=== PATIENT | female | born 1930 | race Caucasian/White ===

== ENCOUNTER 2016-08-10 11:35 | Emergency (ER) | payer OTHER ==
[~2016-08-10] VITALS: Ht 165.1 cm; Wt 66.9 kg
[~2016-08-10 11:35] MED LIST: ALPR-138 PO; ATOR40TA PO; CEPH500C3 PO; COUM1TAB PO; DIGO0.12 PO; FURO1TAB93 PO; KCL20 PO; LEVE500 PO; LISI-360 PO; METO50TA PO; PYRI200T4 PO
[2016-08-10 11:44] VITALS: BP 142/68; PULSE 53; RESP 16; TEMP 97.4; O2SAT 97
--- NOTE | 2016-08-10 12:03 | PD ---
HPI Chief Complaint: Injury Time Seen by Provider: 11:58 Travel History International Travel<30 days: No Contact w/Intl Traveler<30days: No Traveled to known affect area: No History of Present Illness HPI Patient is an 85-year-old female presenting to emergency for evaluation of right knee pain. Patient was sitting on the toilet cutting her toenails on Tuesday, leaning forward when she fell off of the toilet landing on her right knee. She denies any head injury, loss of consciousness, neck pain, back pain. She denies any dizziness, shortness of breath, chest pain prior to the fall. Patient presents with edema and ecchymosis to the right knee, she has been ambulating but states she's hobbling. She has been taking acetaminophen twice daily for the pain. Patient's past medical history includes CVA, hypertension, seizures, she is on Coumadin currently. PFSH Past Medical History Hx Anticoagulant Therapy: Yes (coumadin) Arthritis: No Asthma: No Atrial Fibrillation: Yes Autoimmune Disease: No Blood Disorders: No Cancer: No Cardiac Catheterization: Yes High Cholesterol: Yes Chemotherapy: No Chest Pain: Yes Congestive Heart Failure: No COPD: No Cerebrovascular Accident: Yes Coronary Artery Disease: Yes Diminished Hearing: No Endocrine: No Gastrointestinal Disorders: No GERD: Yes Genitourinary: No Headaches: Yes Hepatitis: No Hiatal Hernia: No Hypertension: Yes Immune Disorder: No Implanted Vascular Access Dvce: No Kidney Stones: No Musculoskeletal: No Psychiatric: No Reproductive: No Respiratory: No Immunizations Current: No Migraines: No Myocardial Infarction: Yes Radiation Therapy: No Renal Failure: No Seizures: Yes Sleep Apnea: No Thyroid Disease: No ?: Not Menopausal: Yes : 2 Para: 1 : 1 Tubal Ligation: No Past Surgical History Abdominal Surgery: Yes AICD: No Cholecystectomy: Yes Genitourinary Surgery: No Hysterectomy: No Insulin Pump: No Joint Replacement: No Neurologic Surgery: Yes (CEREBRAL HEMORRHAGE 20 YEARS AGO) Pacemaker: No Other Surgery: Yes (UMBILICAL HERNIA REPAIR) Social History Alcohol Use: No Tobacco Use: No Substance Use: Yes Allergies-Medications (Allergen,Severity, Reaction): Coded Allergies: Aspirin (Verified Allergy, Severe, BLEEDING, 08/10/16) Dilantin (Verified Allergy, Severe, Hallucinations, 08/10/16) Sulfa (Verified Allergy, Severe, ITCHING, 08/10/16) Reported Meds & Prescriptions Reported Meds & Active Scripts Active Reported Potassium Chloride Microencaps 20 Meq Tab 20 Meq PO DAILY Coumadin (Warfarin) 1 Mg Tab 0.5 Mg PO DAILY Metoprolol Tartrate 50 Mg Tab 50 Mg PO BID Lisinopril 10 Mg Tab 10 Mg PO DAILY Keppra (Levetiracetam) 750 Mg Tab 750 Mg PO BID Lasix (Furosemide) 40 Mg Tab 40 Mg PO DAILY Digoxin 0.25 Mg Tab 0.25 Mg PO DAILY Atorvastatin (Atorvastatin Calcium) 40 Mg Tab 40 Mg PO HS Xanax (Alprazolam) 0.25 Mg Tab 0.25 Mg PO HS PRN Review of Systems Except as stated in HPI: all other systems reviewed are Neg HENT: No: Headaches, Neck Pain Cardiovascular: No: Chest Pain or Discomfort Respiratory: No: Shortness of Breath Gastrointestinal: No: Nausea, Vomiting Musculoskeletal: Positive: Myalgias, Arthralgias, Limited ROM, Edema, Pain Skin: Positive Change in Pigmentation Physical Exam Narrative GENERAL: Well-developed, well-nourished, alert elderly female. Resting comfortably in no acute distress. SKIN: Warm and dry. HEAD: Atraumatic. Normocephalic. EYES: Pupils equal and round. No scleral icterus. No injection or drainage. ENT: No nasal bleeding or discharge. Mucous membranes pink and moist. NECK: Trachea midline. No JVD. CARDIOVASCULAR: Regular rate and rhythm. No murmur appreciated. RESPIRATORY: No accessory muscle use. Clear to auscultation. Breath sounds equal bilaterally. GASTROINTESTINAL: Abdomen soft, non-tender, nondistended. Hepatic and splenic margins not palpable. MUSCULOSKELETAL: No obvious deformities. No clubbing. No cyanosis. Edema noted to the anterior right knee more so on the medial aspect accompanied by significant ecchymosis. No edema noted in right lower extremity, negative Homans sign. Positive pedal pulses, brisk less than 3 second capillary refill. Full range of motion with flexion and extension of knee. NEUROLOGICAL: Awake and alert. No obvious cranial nerve deficits. Motor grossly within normal limits. Normal speech. PSYCHIATRIC: Appropriate mood and affect; insight and judgment normal. Data Data Last Documented VS Vital Signs Date Time Temp Pulse Resp B/P Pulse Ox O2 Delivery O2 Flow Rate FiO2 08/10/16 11:44 97.4 53 16 142/68 97 Orders Knee, Complete (4vws) (08/10/16 ) Prothrombin Time / Inr (Pt) (08/10/16 11:57) Ice/Cold Pack (08/10/16 11:57) Labs Laboratory Tests Test 08/10/16 12:20 Prothrombin Time 42.1 SEC Prothromb Time International 3.6 RATIO Ratio MDM Medical Decision Making Medical Screen Exam Complete: Yes Emergency Medical Condition: Yes Interpretation(s) Vital Signs Date Time Temp Pulse Resp B/P Pulse Ox O2 Delivery O2 Flow Rate FiO2 08/10/16 11:44 97.4 53 16 142/68 97 Differential Diagnosis Hematoma versus contusion versus fracture versus sprain versus strain versus tear versus coagulopathy versus other Narrative Course Patient is an 85-year-old female presenting to the emergency department for evaluation of right knee pain and swelling after she fell off of the toilet bowl cutting her toenails on Tuesday. Patient is neurologically intact. There is moderate edema and ecchymosis noted anterior/medial aspect of the right knee. Patient's neurovascularly intact with a negative Homans sign. Straight ordered of the right knee, we'll evaluate patient's INR as well. Imaging of the right knee is negative for acute fracture or dislocation. INR is 3.6. Patient is encouraged to hold dose today and follow up with primary doctor. Furthermore patient is encouraged to alternate heat and ice to the affected area. Patient will be given Vasiliy wrap for comfort. She is encouraged to follow- up with her primary doctor. Patient will be given a short course of oral pain medication. She is encouraged to continue range of motion exercises. She is encouraged to return to emergency department for any new or worsening symptoms. Patient verbalized understanding of instructions. Patient stable for discharge. Diagnosis Primary Impression: Traumatic hematoma of knee Qualified Code: S80.01XA - Traumatic hematoma of knee, right, initial encounter Referrals: Primary Care Physician Patient Instructions: General Instructions, Hematoma (ED), Knee Pain (ED) Additional Instructions: Apply warm moist heat to affected area, continue range of motion exercises, avoid exacerbating activities Follow-up with your primary doctor Return to emergency department for any new or worsening symptoms Your INR is 3.6, follow-up with your primary doctor Med/Other Pt SpecificInfo: Prescription(s) given Disposition: DISCHARGE HOME Condition: Stable Salma Brantley Aug 10, 2016 12:03
[2016-08-10] MEDS ORDERED: DIGO0.25 PO (12:11)
[2016-08-10] MEDS ORDERED: KEPP750T PO (12:11)
[2016-08-10] MEDS ORDERED: FURO1TAB60 PO (12:11)
[2016-08-10] MEDS ORDERED: ATOR40TA16 PO (12:11)
[2016-08-10] MEDS ORDERED: ALPR.25 PO (12:11)
[2016-08-10] MEDS ORDERED: COUM1TAB PO (12:12)
[2016-08-10] MEDS ORDERED: LISI10TA3 PO (12:12)
[2016-08-10] MEDS ORDERED: POTA20TA5 PO (12:12)
[2016-08-10] MEDS ORDERED: METO50TA PO (12:12)
--- NOTE | 2016-08-10 12:23 | RADHPO ---
EXAM DATE/TIME: 08/10/2016 12:08 [facility] COMPARISON: No previous studies available for comparison. INDICATIONS : Fall today right knee pain/swelling/bruising. MEDICAL HISTORY : Hypercholesterolemia. Hypertension. CVA. IN. CAD. A-fib. GERD. SURGICAL HISTORY : Cholecystectomy. Umbilical hernia repair. ENCOUNTER: Initial ACUITY: 1 day PAIN SCORE: 10/10 LOCATION: Right knee FINDINGS: Diffuse osteopenia of the right knee is noted. There is no acute fracture or dislocation. No knee huong nt effusion is noted. CONCLUSION: 1. Disuse osteopenia of the right knee. 2. No acute fracture or dislocation. Ever Bridges MD on August 10, 2016 at 12:20 Board Certified Radiologist. This report was verified electronically.
[2016-08-10 12:41] LABS: INTERNATIONAL NORMALIZED RATIO 3.6 RATIO; PROTHROMBIN TIME - PATIENT 42.1 SEC (9.8-11.6)
[2016-08-10] MEDS ORDERED: PERC5TAB12 PO (13:01)
== END 2016-08-10 13:19 | disposition home or self-care (01) ==
LOC: PHEFT 11:35
DX: S80.01XA Contusion of right knee, initial encounter (principal); W18.11XA Fall from or off toilet without subsequent striking against object, initial encounter; Y93.E8 Activity, other personal hygiene
CPT/HCPCS: 73564; 85610; 99283

== ENCOUNTER 2016-10-25 21:59 | Inpatient (IN) | payer OTHER, MEDICARE ==
[~2016-10-25] VITALS: Ht 170.2 cm; Wt 67.3 kg
[2016-10-25] VITALS (9 sets, daily range): BP systolic 123–202; BP diastolic 74–121; PULSE 87–118; RESP 16–19; TEMP 99.7; O2SAT 93–98
[~2016-10-25 21:59] MED LIST changes: -ALPR-138 PO; +ALPR.25 PO; -ATOR40TA PO; +ATOR40TA16 PO; -CEPH500C3 PO; -DIGO0.12 PO; +DIGO0.25 PO; +FURO1TAB60 PO; -FURO1TAB93 PO; -KCL20 PO; +KEPP750T PO; -LEVE500 PO; -LISI-360 PO; +LISI10TA3 PO; +PERC5TAB12 PO; +POTA20TA5 PO; -PYRI200T4 PO
[2016-10-25] MEDS ORDERED: SODIUM CHLOR 0.9% 1000 ML INJ 1,000 ML IV ONE (22:04)
[2016-10-25] MEDS ORDERED: LORazepam 2 MG/ML VIAL IV PUSH ONE (22:15)
--- NOTE | 2016-10-25 22:19 | RADRPT ---
EXAM DATE/TIME: 10/25/2016 22:10 [facility] COMPARISON: No previous studies available for comparison. INDICATIONS : Stroke alert; right sided weakness, slurred speech. RADIATION DOSE: 47.14 CTDIvol (mGy) This report was called by Dr. Robert to Dr. Dubois at 10: 14 PM on October 25, 2016 MEDICAL HISTORY : Non-responsive. SURGICAL HISTORY : Non-responsive. ENCOUNTER: Initial ACUITY: 1 day PAIN SCALE: Non-responsive LOCATION: cranial TECHNIQUE: Multiple contiguous axial images were obtained of the head. Using automated exposure control and adj ustment of the mA and/or kV according to patient size, radiation dose was kept as low as reasonably a chievable to obtain optimal diagnostic quality images. 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 There are no signs of acute infarct, intracranial hemorrhage, or mass. The osseous structures ar e intact. CONCLUSION: No acute disease. Krzysztof Robert MD on October 25, 2016 at 22:14 Board Certified Radiologist. This report was verified electronically.
[2016-10-25] MEDS ORDERED: IOHEXOL 350 MG/ML 10 ML VIAL (for RAD DIAG) IV ONE (22:22)
[2016-10-25 22:28] LABS: I-STAT POTASSIUM 4.1 MMOL/L (3.5-4.9); I-STAT SODIUM 133 MMOL/L (138-146)
--- NOTE | 2016-10-25 22:28 | PD ---
HPI Chief Complaint: Stroke Alert Time Seen by Provider: 22:04 Travel History International Travel<30 days: No Contact w/Intl Traveler<30days: No Traveled to known affect area: No History of Present Illness HPI The patient is an 85 year old female who presents to the [facility] emergency department with a history of being called as a stroke alert prior to arrival by ambulance services. According to them 3 hours prior to arrival the patient began to have difficulty speaking. She was saying words, however it was more of a word salad and did not make any sense. The patient resides with her daughter who is the one that called ambulance services. Her daughter reports that she also seemed to be having abnormal movements to her right upper extremity, intermittently tensing her right upper extremity. The patient has difficulty following commands, however she does arrive awake and alert and tries to answer questions. According to the record, she does have a history of seizure disorder and is on Keppra. 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 In route to this facility the patient was noted to be in A. fib with RVR rate in the 120s. The patient's blood sugar prior to arrival was reportedly 214. The patient was noted to be a left bundle branch block on her ECG. The patient was noted to have intermittent rigidity to the right upper extremity, twitching movements of the right lower extremity suspicious for seizure activity. No medication was provided prior to arrival for this. As the patient is having difficulty following commands and is also having difficulty communicating review of systems is limited in this patient. [facility] Past Medical History Narrative Medical The patient's past medical history is significant for seizure disorder, prior history of hemorrhagic stroke, history of atrial fibrillation, history of hypertension, history of anxiety disorder, history of hyperlipidemia, prior history of chest pain, history of coronary artery disease. Hx Anticoagulant Therapy: Yes (coumadin) Arthritis: No Asthma: No Atrial Fibrillation: Yes Autoimmune Disease: No Blood Disorders: No Cancer: No Cardiac Catheterization: Yes High Cholesterol: Yes Chemotherapy: No Chest Pain: Yes Congestive Heart Failure: No COPD: No Cerebrovascular Accident: Yes Coronary Artery Disease: Yes Diminished Hearing: No Endocrine: No Gastrointestinal Disorders: No GERD: Yes Genitourinary: No Headaches: Yes Hepatitis: No Hiatal Hernia: No Hypertension: Yes Immune Disorder: No Implanted Vascular Access Dvce: No Kidney Stones: No Musculoskeletal: No Psychiatric: No Reproductive: No Respiratory: No Immunizations Current: No Migraines: No Myocardial Infarction: Yes Radiation Therapy: No Renal Failure: No Seizures: Yes Sleep Apnea: No Thyroid Disease: No ?: Not Menopausal: Yes : 2 Para: 1 : 1 Tubal Ligation: No Past Surgical History Narrative Surgical The patient's past surgical history is significant for cholecystectomy, umbilical hernia repair. Abdominal Surgery: Yes AICD: No Cholecystectomy: Yes Genitourinary Surgery: No Hysterectomy: No Insulin Pump: No Joint Replacement: No Neurologic Surgery: Yes (CEREBRAL HEMORRHAGE 20 YEARS AGO) Pacemaker: No Other Surgery: Yes (UMBILICAL HERNIA REPAIR) Social History Alcohol Use: No Tobacco Use: No Substance Use: No Allergies-Medications (Allergen,Severity, Reaction): Coded Allergies: Aspirin (Verified Allergy, Severe, BLEEDING, 10/25/16) Dilantin (Verified Allergy, Severe, Hallucinations, 10/25/16) Sulfa (Verified Allergy, Severe, ITCHING, 10/25/16) Reported Meds & Prescriptions Reported Meds & Active Scripts Active Percocet (Oxycodone-Acetaminophen) 5-325 mg Tab 1 Tab PO Q6H PRN Reported Acyclovir 400 Mg Tab 400 Mg PO TID Diltiazem CD 24 HR 360 Mg Capcr 360 Mg PO DAILY Potassium Chloride Microencaps 20 Meq Tab 20 Meq PO DAILY Coumadin (Warfarin) 1 Mg Tab 0.5 Mg PO DAILY Metoprolol Tartrate 50 Mg Tab 50 Mg PO BID Lisinopril 10 Mg Tab 10 Mg PO DAILY Keppra (Levetiracetam) 750 Mg Tab 750 Mg PO BID Lasix (Furosemide) 40 Mg Tab 40 Mg PO DAILY Digoxin 0.25 Mg Tab 0.25 Mg PO DAILY Atorvastatin (Atorvastatin Calcium) 40 Mg Tab 40 Mg PO HS Xanax (Alprazolam) 0.25 Mg Tab 0.25 Mg PO HS PRN Review of Systems ROS Limitations: Clinical Condition, Poor Historian Cardiovascular: Positive: Tachycardia Neurologic: Positive: Focal Abnormalities, Change in Mentation, Seizures, Other (difficulty speaking and following commands), No: Weakness Physical Exam Narrative General: The patient is a well-developed well-nourished female, on arrival awake and alert, attempting to understand and communicate, however she has difficulty following commands. Head and Neck exam: Head is normocephalic atraumatic. Eyes: EOMI, pupils are equal round and reactive to light. Nose: Midline septum with pink mucous membranes Mouth: Dentition unremarkable. Moist mucus membranes. Posterior oropharynx is not erythematous. No tonsillar hypertrophy. Uvula midline. Airway patent. Neck: No palpable lymphadenopathy. No nuchal rigidity. No thyromegaly. Cardiovascular: Irregularly irregular with a rate in the 1 teens without murmurs, gallops, or rubs. Lungs: Clear to auscultation bilaterally. No wheezes, rhonchi, or rales. Abdomen: Soft, without tenderness to palpation in all 4 quadrants of the abdomen. No guarding, rebound, or rigidity. Normal bowel sounds are audible. No tenderness on palpation of McBurney's point. Extremities: No clubbing, cyanosis, or edema. 2+ pulses in all 4 extremities. Back: No costovertebral angle tenderness to palpation. Neurologic Exam: Cranial nerves 2-12 were intact on exam. Strength is 5/5 in all 4 extremities. The patient has difficulty communicating to express any sensory deficits per The patient has difficulty following commands for assessment of cerebellar ataxia. The patient has an expressive aphasia. The patient is not able to name various objects around the room. When attempting to answer questions words are intelligible that she is saying, however I'm related to Skin Exam: No rash noted. Intact skin that is warm and dry. Data Data Last Documented VS Vital Signs Date Time Temp Pulse Resp B/P Pulse Ox O2 Delivery O2 Flow Rate FiO2 10/25/16 23:07 91 16 187/86 93 Nasal Cannula 2 10/25/16 22:20 99.7 Orders Diet Npo (10/26/16 Breakfast) Activity Bed Rest (10/25/16 ) Electrocardiogram (10/25/16 ) I-Stat Creatinine (10/25/16 22:04) I-Stat Profile (10/25/16 22:04) Prothrombin Time / Inr (Pt) (10/25/16 22:04) Act Partial Throm Time (Ptt) (10/25/16 22:04) Complete Blood Count With Diff (10/25/16 22:04) Fibrinogen (10/25/16 22:04) Creatine Kinase (Cpk) (10/25/16 22:04) Troponin I (10/25/16 22:04) Ua Includes Microscopic (10/25/16 22:04) Drug Screen, Random Urine (10/25/16 22:04) Type And Screen (10/25/16 22:04) Ct Brain W/O Iv Contrast(Rout) (10/25/16 ) Cta Brain W Iv Contrast W 3d (10/25/16 22:04) Cta Neck W Iv Contrast W 3d (10/25/16 22:04) Beta Hcg (Quant/Titer) (10/25/16 22:04) Consult Neurology (10/25/16 ) Blood Glucose (10/25/16 22:04) Ecg Monitoring (10/25/16 22:04) Neuro Checks Q2HX12,Q4H (10/25/16 22:04) Nursing Bedside Swallow Assess .ONCE (10/25/16 22:04) Iv Access Insert/Monitor (10/25/16 22:04) NPO (10/25/16 22:04) Oximetry (10/25/16 22:04) Oxygen Administration (10/25/16 22:04) Sodium Chlor 0.9% 1000 Ml Inj (Ns 1000 M (10/25/16 22:04) Resp Oxygen Ethan C Titrat 1-4 L (10/25/16 22:04) Cath For Specimen (10/25/16 22:04) Lorazepam Inj (Ativan Inj) (10/25/16 22:15) Digoxin (10/25/16 22:14) (Hub Use Only)Inp Phy Cons/Ref (10/25/16 ) Iohexol 350 Inj (Omnipaque 350 Inj) (10/25/16 22:22) Admit Order (Ed Use Only) (10/25/16 23:37) Labs Laboratory Tests Test 10/25/16 10/25/16 22:00 22:35 White Blood Count 12.8 TH/MM3 Red Blood Count 5.20 MIL/MM3 Hemoglobin 15.3 GM/DL Bedside Hemoglobin 16.3 G/DL Hematocrit 45.0 % Bedside Hematocrit 48.0 % Mean Corpuscular Volume 86.5 FL Mean Corpuscular Hemoglobin 29.4 PG Mean Corpuscular Hemoglobin 34.0 % Concent Red Cell Distribution Width 14.0 % Platelet Count 261 TH/MM3 Mean Platelet Volume 8.2 FL Neutrophils (%) (Auto) 80.5 % Lymphocytes (%) (Auto) 11.6 % Monocytes (%) (Auto) 6.9 % Eosinophils (%) (Auto) 0.4 % Basophils (%) (Auto) 0.6 % Neutrophils # (Auto) 10.3 TH/MM3 Lymphocytes # (Auto) 1.5 TH/MM3 Monocytes # (Auto) 0.9 TH/MM3 Eosinophils # (Auto) 0.0 TH/MM3 Basophils # (Auto) 0.1 TH/MM3 CBC Comment DIFF FINAL Differential Comment Prothrombin Time 24.0 SEC Prothromb Time International 2.1 RATIO Ratio Activated Partial 33.5 SEC Thromboplast Time Fibrinogen 339 mg/dL Bedside Sodium 133 MMOL/L Bedside Potassium 4.1 MMOL/L Bedside Chloride 94 MMOL/L Bedside Blood Urea Nitrogen 18 MG/DL Bedside Creatinine 0.7 MG/DL Bedside Glucose 212 MG/DL Total Creatine Kinase 95 U/L Troponin I LESS THAN 0.02 NG/ML Human Chorionic Gonadotropin, 2 MIU/ML Quant Digoxin Level 0.5 NG/ML Blood Type O POSITIVE Antibody Screen NEGATIVE Urine Color YELLOW Urine Turbidity HAZY Urine pH 6.5 Urine Specific [place] 1.019 Urine Protein 30 mg/dL Urine Glucose (UA) TRACE mg/dL Urine Ketones NEG mg/dL Urine Occult Blood SMALL Urine Nitrite NEG Urine Bilirubin NEG Urine Urobilinogen LESS THAN 2.0 MG/DL Urine Leukocyte Esterase NEG Urine RBC 5 /hpf Urine WBC 2 /hpf Urine Squamous Epithelial 3 /hpf Cells Microscopic Urinalysis Comment Urine Opiates Screen NEG Urine Barbiturates Screen NEG Urine Amphetamines Screen NEG Urine Benzodiazepines Screen NEG Urine Cocaine Screen NEG Urine Cannabinoids Screen NEG MDM Medical Screen Exam Complete: Yes Emergency Medical Condition: Yes Medical Record Reviewed: Yes EKG Prior to Arrival: Yes Differential Diagnosis Intracranial hemorrhage, versus ischemic stroke, versus focal seizure activity, versus encephalopathy Narrative Course During the course of the patients emergency department visit, the patients history, examination, and differential diagnosis were reviewed with the patient. The patient had IV access obtained and blood work sent for analysis. A stroke alert was called prior to arrival. Upon the patient's arrival I did speak to Dr. Medel, the neurologist home energy consultant. I spoke to him at approximately 10: 05 PM. We discussed at length the patient's case and the fact that the patient has several factors that make it unlikely that TPA should be administered including a prior history of hemorrhagic stroke, current anticoagulation on Coumadin, and suspected seizure activity on exam. A CT scan of the brain without contrast was ordered, however I also added a CTA of the neck and brain to follow if CT of the brain is initially negative for hemorrhage as the patient does have aphasia and could be a candidate for thrombectomy. EKG was done on arrival that shows atrial fibrillation with RVR rate of 114, evidence of a left bundle branch block which the patient has had previously, no other acute findings. The patient's initial blood pressure on arrival is a systolic in the 120s. The patient was initially provided normal saline at 70 mL per hour.. The patients laboratory studies were reviewed and remarkable for an i-STAT with creatinine that reveals an initial creatinine of 0.7. Sodium 133, chloride 94, BUN 18, glucose 212, initial set of cardiac enzymes are within normal limits, INR 2.1, urine drug screen is negative, digoxin level 0.5 Radiology studies were reviewed and remarkable for a CT scan of the brain that was called to me by Dr. Robert at 10:16 PM as showing no acute evidence of hemorrhage, old left sided infarct is noted. CTA of the neck shows no evidence for hemodynamically significant stenosis, CTA of the brain shows a normal examination for a patient of this age. The patient's family arrived at the patient's bedside. They report that the patient has had similar symptoms related to seizure activity and on evaluation in the emergency department has been diagnosed with a stroke in the past, however on continued evaluation the difficulty speaking was related to seizure activity. They report that she has been taking her medication on a regular basis. They also report that the patient was recently placed on acyclovir, however they are unsure of the reason. The patient's findings were discussed again with Dr. Medel, the neurologist. As the patient is anticoagulated on Coumadin, he agrees that the patient is not a candidate for TPA. The patient is also not a candidate for thrombectomy. Critical Care Narrative Aggregate critical care time was 33 minutes. Time to perform other separately billable procedures was not included in the critical care time. My time did not include minutes spent treating any other patients simultaneously or on activities that did not directly contribute to the patient's treatment. The services I provided to this patient were to treat and/or prevent clinically significant deterioration that could result in: Status epilepticus, versus permanent disability, versus respiratory failure , versus cardiovascular collapse I provided critical care services requiring my management, as noted below: Chart data review, documentation time, medication orders and management, vital sign assessments/reviewing monitor data, ordering and reviewing lab tests, ordering and interpreting/reviewing x-rays and diagnostic studies, care of the patient and discussion of the patient with the admitting physicians. Stroke Alert NIHSS NIH Stroke Scale Result: 5 NIHSS Time Completed: 22:05 Thrombolytic Contraindications Contraindications: Bleeding Diathesis (anticoagulated on Coumadin with an INR of 2.1) Physician Communication Physician Communication The patient's case was discussed with Dr. Gaspar who did agree to admit the patient for further evaluation and treatment at this time. Diagnosis Diagnosis: Primary Impression: Stroke Qualified Code: I63.9 - Cerebrovascular accident (CVA), unspecified mechanism Additional Impression: Atrial fibrillation with RVR Admitting Physician Requests: Yadi López MD Oct 25, 2016 22:28
[2016-10-25 22:30] LABS: AUTOMATED NEUTROPHIL # 10.3 TH/MM3 (1.8-7.7); BASOPHIL # 0.1 TH/MM3 (0-0.2); BASOPHIL % 0.6 % (0.0-2.0); EOSINOPHIL % 0.4 % (0.0-4.0); HEMO FLAGS DIFF FINAL; LYMPH % 11.6 % (9.0-44.0); LYMPHOCYTE # 1.5 TH/MM3 (1.0-4.8); MEAN CELL VOLUME 86.5 FL (80.0-100.0); MEAN CORPUSCULAR HEMOGLOBIN 29.4 PG (27.0-34.0); MONO % 6.9 % (0.0-8.0); NEUT % 80.5 % (16.0-70.0); PLATELET COUNT 261 TH/MM3 (150-450); WHITE BLOOD COUNT 12.8 TH/MM3 (4.0-11.0)
--- NOTE | 2016-10-25 22:34 | RADRPT ---
EXAM DATE/TIME: 10/25/2016 22:10 [facility] COMPARISON: CT BRAIN W/O CONTRAST, October 25, 2016, 22:10. INDICATIONS : Stroke alert; right sided weakness and slurred speech. IV CONTRAST: 70 cc Omnipaque 350 (iohexol) IV ; Cumulative dose for multiple exams. RADIATION DOSE: 28.66 CTDIvol (mGy) ; Combined studies MEDICAL HISTORY : Non-responsive. SURGICAL HISTORY : Non-responsive. ENCOUNTER: Initial ACUITY: 1 day PAIN SCALE: Non-responsive LOCATION: cranial TECHNIQUE: Volumetric scanning was performed using a multi-row detector CT scanner. The data was post processed with a variety of visualization algorithms including full volume maximum intensity projection, multi -planar sliding thin slab reformation, curved planar reformation, and surface rendering techniques. Using automated exposure control and adjustment of the mA and/or kV according to patient size, radiat ion dose was kept as low as reasonably achievable to obtain optimal diagnostic quality images. FINDINGS: There is excellent visualization of the major intracranial arteries out to the second-order branch ve ssels. There is no evidence for aneurysm, vessel truncation or stenosis, and no evidence for vascula r malformation. CONCLUSION: Normal examination for a patient of this age. Krzysztof Robert MD on October 25, 2016 at 22:30 Board Certified Radiologist. This report was verified electronically.
--- NOTE | 2016-10-25 22:40 | RADRPT ---
EXAM DATE/TIME: 10/25/2016 22:10 [facility] COMPARISON: CT BRAIN W/O CONTRAST, October 25, 2016, 22:10. CTA BRAIN W 3D RECON, October 25, 2016, 22:10. INDICATIONS : Stroke alert; right sided weakness and slurred speech. IV CONTRAST: 70 cc Omnipaque 350 (iohexol) IV ; Cumulative dose for multiple exams. RADIATION DOSE: 28.66 CTDIvol (mGy) ; Combined studies MEDICAL HISTORY : Non-responsive. SURGICAL HISTORY : Non-responsive. ENCOUNTER: Initial ACUITY: 1 day PAIN SCALE: Non-responsive LOCATION: neck Elevated flow velocities and ICA/CCA ratios have been found to correlate with increased degrees of vessel stenosis, calculated as percentage of diameter relative to a normal segment of distal ICA/CCA. TECHNIQUE: Volumetric scanning was performed using a multirow detector CT scanner. The data was post processed with a variety of visualization algorithms including full-volume maximum intensity projection, multip lanar sliding thin-slab reformation, curved-planar reformation, and surface-rendering techniques. Us ing automated exposure control and adjustment of the mA and/or kV according to patient size, radiatio n dose was kept as low as reasonably achievable to obtain optimal diagnostic quality images. FINDINGS: Brachiocephalic artery origin is incompletely imaged on this study. Left subclavian and common caroti d artery origins as well as the bilateral vertebral artery origins are widely patent. Scattered areas of calcific plaquing are identified within the vertebral and carotid arteries. There is no evidence for hemodynamically significant stenosis of either common carotid, internal carotid or external carot id arteries. Bifurcations are widely patent. The CONCLUSION: No evidence for hemodynamically significant stenosis. Krzysztof Robert MD on October 25, 2016 at 22:36 Board Certified Radiologist. This report was verified electronically.
[2016-10-25 22:52] LABS: BETA HCG QUANT 2 MIU/ML (0-5)
[2016-10-25 22:53] LABS: BLOOD, URINE SMALL (NEG); GLUCOSE,URINE TRACE mg/dL (NEG); KETONE, URINE NEG (NEG); NITRITE,URINE NEG (NEG); PH, URINE 6.5 (5.0-8.5); SQUAMOUS EPITHELIAL CELL URINE 3 /hpf (0-5); URINE COLOR YELLOW (YELLW/STRAW)
[2016-10-25 22:56] LABS: CREATINE KINASE 95 U/L (26-192)
[2016-10-25] MEDS ORDERED: DILT360C12 PO (22:58)
[2016-10-25] MEDS ORDERED: ACYC400T PO (22:59)
[2016-10-25 23:03] LABS: AMPHETAMINE, URINE NEG (NEG); BARBITURATES, URINE NEG (NEG); COCAINE, URINE NEG (NEG)
[2016-10-25 23:16] LABS: APTT (PATIENT) 33.5 SEC (24.3-30.1); INTERNATIONAL NORMALIZED RATIO 2.1 RATIO
[2016-10-25] MEDS ORDERED: LORazepam 2 MG/ML VIAL IV PUSH PRN (23:45)
[2016-10-26] VITALS (22 sets, daily range): BP systolic 137–185; BP diastolic 64–110; PULSE 74–99; RESP 15–25; TEMP 97.9–99.5; O2SAT 94–98
--- NOTE | 2016-10-26 00:20 | HHI.HP ---
[facility] Primary [facility] Physician Non-Staff Admission Diagnosis Stroke Alert, Aphasia, Seizure disorder, afib Diagnoses: Chief Complaint: stroke alert versus seizure activity Travel History International Travel<30 Days: No Contact w/Intl Traveler <30 Da: No Traveled to Known Affected Are: No History of Present Illness This is an 85 year old female patient with a past medical history which includes seizure disorder on Keppra, hemorrhagic stroke, atrial fibrillation on Coumadin INR 2.1, hypertension and hyperlipidemia. Patient is currently unable to provide meaningful information. Information gathered from patient, prior charting and two son's at bedside. Patient was at home with daughter when patient was noted to have a difficult time talking (word salad) along with right upper extremity rigidity and right lower extremity twitching. Per sons who are at bedside patient had similar symptoms about 5-6 weeks ago. In fact the sons report that she has had these symptoms multiple times in the past. Patient states, "I'm ok," and is unable to elaborate. Patient was brought into the emergency department under stroke alert here provider spoke with on-call neurologist Dr. Medel patient not to be a TPA candidate at this time. Two weeks ago patient had frequent urination which seems to had resolved. There is no reports of chest pain, shortness of breath, N/V/D, fevers or chills. Blood glucose 212 on arrival to ER. Review of Systems ROS Limitations: Clinical Condition, Poor Historian (expressive dysphasia) Past Family Social History Past Medical History seizure disorder, hemorrhagic stroke 25 years ago, atrial fibrillation, hypertension, hyperlipidemia. Past Surgical History cholecystectomy, umbilical hernia repair Reported Medications Percocet (Oxycodone-Acetaminophen) 5-325 mg Tab 1 Tab PO Q6H PRN Acyclovir 400 Mg Tab 400 Mg PO TID Diltiazem CD 24 HR 360 Mg Capcr 360 Mg PO DAILY Potassium Chloride Microencaps 20 Meq Tab 20 Meq PO DAILY Coumadin (Warfarin) 1 Mg Tab 0.5 Mg PO DAILY Metoprolol Tartrate 50 Mg Tab 50 Mg PO BID Lisinopril 10 Mg Tab 10 Mg PO DAILY Keppra (Levetiracetam) 750 Mg Tab 750 Mg PO BID Lasix (Furosemide) 40 Mg Tab 40 Mg PO DAILY Digoxin 0.25 Mg Tab 0.25 Mg PO DAILY Atorvastatin (Atorvastatin Calcium) 40 Mg Tab 40 Mg PO HS Allergies: Coded Allergies: Aspirin (Verified Allergy, Severe, BLEEDING, 10/25/16) Dilantin (Verified Allergy, Severe, Hallucinations, 10/25/16) Sulfa (Verified Allergy, Severe, ITCHING, 10/25/16) Active Ordered Medications Current Medications Medications (Trade) Dose Ordered Sig/Linh Route Start Time Stop Time Status Last Admin (NS 1000 ml Inj) 1,000 ml @ 70 mls/hr [id number] ONCE IV 10/25/16 22:04 10/26/16 12:21 10/25/16 22:48 (Ativan Inj) 1 mg Q15M PRN IV PUSH 10/25/16 23:45 (Lipitor) 40 mg HS PO 10/26/16 21:00 (Lanoxin) 0.25 mg DAILY PO 10/26/16 09:00 (Keppra) 750 mg BID PO 10/26/16 09:00 Family History both parents in their 80's of, "old age" Social History lives alone, has daughter and two sons who check on her often quit tobacco use 25 years ago no ETOH use Physical Exam Vital Signs Vital Signs Date Time Temp Pulse Resp B/P Pulse Ox O2 Delivery O2 Flow Rate FiO2 10/25/16 23:54 95 18 169/74 95 Room Air 10/25/16 23:40 87 18 169/77 96 Nasal Cannula 2 10/25/16 23:07 91 16 187/86 93 Nasal Cannula 2 10/25/16 22:41 104 183/121 10/25/16 22:40 111 202/86 10/25/16 22:27 117 19 194/91 97 Room Air 10/25/16 22:20 99.7 107 19 179/79 98 Room Air 10/25/16 22:06 109 18 141/106 97 Room Air 10/25/16 22:00 17 Room Air 10/25/16 21:59 118 18 123/100 97 Physical Exam GENERAL: This is an elderly 85 year old female patient, who is currently awake and alert but unable to provide meaningful information. SKIN: No rashes, ecchymoses or lesions. Cool and dry. HEAD: Atraumatic. Normocephalic. No temporal or scalp tenderness. EYES: Extraocular motions intact. No scleral icterus. No injection or drainage. CARDIOVASCULAR: irregular without murmurs, gallops, or rubs. RESPIRATORY: Clear to auscultation. Breath sounds equal bilaterally. No wheezes , rales, or rhonchi. GASTROINTESTINAL: Abdomen soft, non-tender, nondistended. No hepato-splenomegaly , or palpable masses. No guarding. MUSCULOSKELETAL: Right sided weakness. Extremities without clubbing, cyanosis, or edema. No joint tenderness, effusion, or edema noted. No calf tenderness. Negative Homans sign bilaterally. NEUROLOGICAL: Awake and alert. difficultly following commands. dysphagia. right upper extremity weakness Laboratory Laboratory Tests Test 10/25/16 10/25/16 22:00 22:35 White Blood Count 12.8 Red Blood Count 5.20 Hemoglobin 15.3 Bedside Hemoglobin 16.3 Hematocrit 45.0 Bedside Hematocrit 48.0 Mean Corpuscular Volume 86.5 Mean Corpuscular Hemoglobin 29.4 Mean Corpuscular Hemoglobin 34.0 Concent Red Cell Distribution Width 14.0 Platelet Count 261 Mean Platelet Volume 8.2 Neutrophils (%) (Auto) 80.5 Lymphocytes (%) (Auto) 11.6 Monocytes (%) (Auto) 6.9 Eosinophils (%) (Auto) 0.4 Basophils (%) (Auto) 0.6 Neutrophils # (Auto) 10.3 Lymphocytes # (Auto) 1.5 Monocytes # (Auto) 0.9 Eosinophils # (Auto) 0.0 Basophils # (Auto) 0.1 CBC Comment DIFF FINAL Differential Comment Prothrombin Time 24.0 Prothromb Time International 2.1 Ratio Activated Partial 33.5 Thromboplast Time Fibrinogen 339 Bedside Sodium 133 Bedside Potassium 4.1 Bedside Chloride 94 Bedside Blood Urea Nitrogen 18 Bedside Creatinine 0.7 Bedside Glucose 212 Total Creatine Kinase 95 Troponin I LESS THAN 0.02 Human Chorionic Gonadotropin, 2 Quant Digoxin Level 0.5 Blood Type O POSITIVE Antibody Screen NEGATIVE Urine Color YELLOW Urine Turbidity HAZY Urine pH 6.5 Urine Specific [place] 1.019 Urine Protein 30 Urine Glucose (UA) TRACE Urine Ketones NEG Urine Occult Blood SMALL Urine Nitrite NEG Urine Bilirubin NEG Urine Urobilinogen LESS THAN 2.0 Urine Leukocyte Esterase NEG Urine RBC 5 Urine WBC 2 Urine Squamous Epithelial 3 Cells Microscopic Urinalysis Comment Urine Opiates Screen NEG Urine Barbiturates Screen NEG Urine Amphetamines Screen NEG Urine Benzodiazepines Screen NEG Urine Cocaine Screen NEG Urine Cannabinoids Screen NEG Result Diagram: 10/25/162199 Imaging Last Impressions Neck CTA 10/25/162203 Signed Impressions: Service Date/Time: Tuesday, October 25, 2016 22:10 - CONCLUSION: No evidence for hemodynamically significant stenosis. Krzysztof Robert MD Head CTA 10/25/162203 Signed Impressions: Service Date/Time: Tuesday, October 25, 2016 22:10 - CONCLUSION: Normal examination for a patient of this age. Krzysztof Robert MD Head CT 10/25/16 0000 Signed Impressions: Service Date/Time: Tuesday, October 25, 2016 22:10 - CONCLUSION: No acute disease. Krzysztof Robert MD Assessment and Plan Problem List: (1) Seizure ICD Code: R56.9 Status: Acute (2) CVA (cerebral vascular accident) ICD Code: I63.9 Status: Acute (3) A-fib ICD Code: I48.91 Status: Chronic Assessment and Plan This is an 85 year old female patient with a past medical history which includes seizure disorder on Keppra, hemorrhagic stroke, atrial fibrillation on Coumadin INR 2.1, hypertension and hyperlipidemia. Patient is currently unable to provide meaningful information. Information gathered from patient, prior charting and two son's at bedside. Patient was at home with daughter when patient was noted to have a difficult time talking (word salad) along with right upper extremity rigidity and right lower extremity twitching. CVA/TIA vs seizure CT head reveals no acute findings CTA head reports normal exam for patietn of this age CTA neck no evidence for hemodynamically significant stenosis Echocardiogram ordered HOB flat allow permissive HTN Lipid profile in AM ER provider discussed with DR. Medel- patient not a TPA candidate EEG Ativan as needed for seizure Continue Keppra Neurology consult Atrial fibrillation rate currently controlled On Coumadin with therapeutic INR 2.1 Continue digoxin Continue Coumadin Hold Cardizem to allow permissive hypertension Hypertension hold antihypertensive medication to allow permissive hypertension this time Hyperlipidemia continue home medication check lipid profile in a.m. DVT prophylaxis patient is on Coumadin with therapeutic INR Discussed with ER provider, nursing, patient and family members at bedside Written by Yusra Mattson, acting as scribe for Dr. Gaspar on 10/26/16 at 00: 34. This note was transcribed by scribe [Yusra Mattson]. I, Dr. Yehuda Gaspar personally performed the history, physical exam, and medical decision making; and confirmed the accuracy of the information in the transcribed note. Authenticated by Dr. Yehuda Gaspar on 10/26/16 at 00:34. Discussed Condition With patient, ER MD, family members at bedside Physician Certification 2 Midnight Certification Type: Admission for Inpatient Services Order for Inpatient Services The services are ordered in accordance with Medicare regulations or non- Medicare payer requirements, as applicable. In the case of services not specified as inpatient-only, they are appropriately provided as inpatient services in accordance with the 2-midnight benchmark. Estimated LOS (days): 3 days is the estimated time the patient will need to remain in the hospital, assuming treatment plan goals are met and no additional complications. Post-Hospital Plan: Not yet determined Yusra Mattson Oct 26, 2016 00:20 Yehuda Gaspar MD Oct 26, 2016 06:59
[2016-10-26] MEDS ORDERED: ACETAMINOPHEN 325 MG TAB PO PRN (04:15)
[2016-10-26 05:04] LABS: AUTOMATED NEUTROPHIL # 10.9 TH/MM3 (1.8-7.7); BASOPHIL % 0.3 % (0.0-2.0); EOSINOPHIL % 0.2 % (0.0-4.0); HEMATOCRIT 41.1 % (35.0-46.0); HEMO FLAGS DIFF FINAL; LYMPH % 14.2 % (9.0-44.0); MEAN CELL VOLUME 86.6 FL (80.0-100.0); MEAN CORPUSCULAR HEMOGLOBIN 29.3 PG (27.0-34.0); MEAN CORPUSCULAR HGB CONC 33.8 % (32.0-36.0); MONO % 6.9 % (0.0-8.0); NEUT % 78.4 % (16.0-70.0); PLATELET COUNT 210 TH/MM3 (150-450); RED BLOOD COUNT 4.74 MIL/MM3 (4.00-5.30); RED CELL DISTRIBUTION WIDTH 13.9 % (11.6-17.2); WHITE BLOOD COUNT 13.9 TH/MM3 (4.0-11.0)
[2016-10-26 05:16] LABS: BICARBONATE 27.6 MEQ/L (21.0-32.0); POTASSIUM 3.4 MEQ/L (3.5-5.1)
--- NOTE | 2016-10-26 08:42 | EKG ---
Date Performed: 10/25/2016 Time Performed: 22:24:45 PTAGE: 85 years EKG: ATRIAL FIBRILLATION WITH RAPID VENTRICULAR RESPONSE WITH ABERRANT CONDUCTION OR VENTRICULAR PREMATURE COMPLEXES LEFT AXIS DEVIATION LEFT BUNDLE BRANCH BLOCK ABNORMAL ECG PREVIOUS TRACING : 02/04/2016 23.46 Compared to previous tracing, heart rate has increased. DOCTOR: Emery Knox Interpretating Date/Time 10/26/2016 08:41:15
[2016-10-26] MEDS: DIGOXIN 0.25 MG TAB PO SCH (09:24)
[2016-10-26] MEDS: levETIRAcetam 250 MG TAB PO SCH ×2 (10:28→21:54)
--- NOTE | 2016-10-26 15:25 | PD.CONS ---
History of Present Illness Service Neurology Consult Requested By er Reason for Consult stroke/sz Primary Care Physician Non-Staff History of Present Illness 85 y/o f admitted for acute confusion, difficulty with speech and tensing her rt arm. she does take keppra. on coumadin for afib. the pt does not remember what happened to her. feels well at present. no sandy. no focal weakness. bp 187/86 glucose 212 inr 2.1. cta brain/carotids nml. ct brain old stroke. Review of Systems ROS Limitations: 12 point negative, rest as above Past Family Social History Past Medical History seizure disorder, hemorrhagic stroke 25 years ago, atrial fibrillation, hypertension, hyperlipidemia. Past Surgical History cholecystectomy, umbilical hernia repair Reported Medications Percocet (Oxycodone-Acetaminophen) 5-325 mg Tab 1 Tab PO Q6H PRN Acyclovir 400 Mg Tab 400 Mg PO TID Diltiazem CD 24 HR 360 Mg Capcr 360 Mg PO DAILY Potassium Chloride Microencaps 20 Meq Tab 20 Meq PO DAILY Coumadin (Warfarin) 1 Mg Tab 0.5 Mg PO DAILY Metoprolol Tartrate 50 Mg Tab 50 Mg PO BID Lisinopril 10 Mg Tab 10 Mg PO DAILY Keppra (Levetiracetam) 750 Mg Tab 750 Mg PO BID Lasix (Furosemide) 40 Mg Tab 40 Mg PO DAILY Digoxin 0.25 Mg Tab 0.25 Mg PO DAILY Atorvastatin (Atorvastatin Calcium) 40 Mg Tab 40 Mg PO HS Allergies: Coded Allergies: Aspirin (Verified Allergy, Severe, BLEEDING, 10/25/16) Dilantin (Verified Allergy, Severe, Hallucinations, 10/25/16) Sulfa (Verified Allergy, Severe, ITCHING, 10/25/16) Family History no hx of sz Social History lives with daughter quit tobacco use 25 years ago no ETOH use Review of Systems All other ROS: ROS reviewed as documented in chart Past Family Social History Allergies: Coded Allergies: Aspirin (Verified Allergy, Severe, BLEEDING, 10/25/16) Dilantin (Verified Allergy, Severe, Hallucinations, 10/25/16) Sulfa (Verified Allergy, Severe, ITCHING, 10/25/16) Active Ordered Medications Current Medications Medications (Trade) Dose Ordered Sig/Linh Route Start Time Stop Time Status Last Admin (Ativan Inj) 1 mg Q15M PRN IV PUSH 10/25/16 23:45 (Lipitor) 40 mg HS PO 10/26/16 21:00 (Lanoxin) 0.25 mg DAILY PO 10/26/16 09:00 10/26/16 09:24 (Keppra) 750 mg BID PO 10/26/16 09:00 10/26/16 10:28 Warfarin Sodium 0.5 mg 0.5 mg DAILY@1600 PO 10/26/16 16:00 (Coumadin Consult Pharmacy) 0 ml @ 0 mls/hr UNSCH OTHER 10/26/16 00:45 (Coumadin Booklet) 1 ONCE ONCE .XX 10/26/16 16:00 10/26/16 16:01 (Tylenol) 650 mg Q4H PRN PO 10/26/16 04:15 10/26/16 04:22 Exam I&O / VS 10/25/16 10/25/16 10/26/16 14:59 22:59 06:59 Output Total 1075 ml Balance -1075 ml Output Urine Total 1075 ml # Voids 1 Vital Signs Date Time Temp Pulse Resp B/P Pulse Ox O2 Delivery O2 Flow Rate FiO2 10/26/16 11:45 78 15 178/77 97 Nasal Cannula 2 10/26/16 09:45 74 25 153/66 97 Nasal Cannula 2 10/26/16 08:45 76 18 167/73 96 Nasal Cannula 2 10/26/16 07:47 97 Nasal Cannula 2.00 10/26/16 07:45 75 15 152/87 95 Nasal Cannula 2 10/26/16 06:43 87 16 138/68 98 Nasal Cannula 2 10/26/16 04:56 77 16 162/79 98 Nasal Cannula 2 10/26/16 03:58 99.5 84 16 185/84 95 Nasal Cannula 2 10/26/16 02:46 82 18 158/87 95 Nasal Cannula 2 10/26/16 01:11 79 18 174/66 96 Nasal Cannula 2 10/26/16 00:44 94 Nasal Cannula 2.00 10/25/16 23:54 95 18 169/74 95 Room Air 10/25/16 23:40 87 18 169/77 96 Nasal Cannula 2 10/25/16 23:07 91 16 187/86 93 Nasal Cannula 2 10/25/16 22:41 104 183/121 10/25/16 22:40 111 202/86 10/25/16 22:27 117 19 194/91 97 Room Air 10/25/16 22:20 99.7 107 19 179/79 98 Room Air 10/25/16 22:06 109 18 141/106 97 Room Air 10/25/16 22:00 17 Room Air 10/25/16 21:59 118 18 123/100 97 General: Alert and Oriented, No acute distress Eye: EOMI Respiratory: Non-labored respirations Cardiology: Irregular Rhythm Musculoskeletal: ROM Neurologic: Alert, Oriented, Normal sensory, Normal motor, No focal defects, CN II-XII intact Psychiatric: Cooperative, Appropriate mood & affect, Normal judgement, Non- suicidal Review/Management Diagnosis/Plan: (1) Seizure Plan: possible breakthrough sz less likely tia with therapeutic inr and no memory of event recs will add lamictal 25mg bid. increasing keppra has caused her to be somnolent in the past f/u eeg bp control tele f/u with us in 3-4 weeks d/c planning in am has supportive daughter no driving (2) Atrial fibrillation with RVR Plan: on coumadin (3) HTN (hypertension) (4) HLD (hyperlipidemia) Plan: statin Problem Qualifiers (1) HTN (hypertension): Qualified Code: I10 - Essential hypertension (2) HLD (hyperlipidemia): Qualified Code: E78.5 - Hyperlipidemia, unspecified hyperlipidemia type Braydon Livingston MD Oct 26, 2016 15:24
[2016-10-26] MEDS ORDERED: POTASSIUM CHLOR 10 MEQ PREMIX 100 ML IV ONE (16:00)
[2016-10-26] MEDS: WARFARIN SOD 1 MG TAB PO SCH (16:26)
[2016-10-26] MEDS: POTASSIUM CHLORIDE INJ 30 MEQ in DEXT 5%-NACL 0.9% 1000 ML INJ 1,000 ML IV SCH (17:00)
[2016-10-26] MEDS: DILTIAZEM-CD 240 MG CAP ER PO SCH (18:00)
--- NOTE | 2016-10-26 19:01 | EC ---
Study Study Date:10/26/2016 STUDY CONCLUSIONS SUMMARY - Left ventricle: The cavity size was normal. Wall thickness was at the upper limits of normal. Systolic function was normal. The estimated ejection fraction was in the range of 55% to 60%. Wall motion was normal; there were no regional wall motion abnormalities. - Mitral valve: Mild regurgitation. - Left atrium: The atrium was mildly dilated. - Pulmonary arteries: Systolic pressure was mildly increased. PA peak pressure: 39mm Hg (S). If LV function is below 40, please consider prescribing an ACEI or ARB or document rationale for non-use. PROCEDURE DATA STUDY STATUS: Elective. Procedure: Transthoracic echocardiography. Image quality was good. Scanning was performed from the parasternal, apical, and subcostal acoustic windows. Study completion: The patient tolerated the procedure well. Transthoracic echocardiography. M-mode, complete 2D, complete spectral Doppler, and color Doppler. Patient status: Inpatient. CARDIAC ANATOMY LEFT VENTRICLE: The cavity size was normal. Wall thickness was at the upper limits of normal. Systolic function was normal. The estimated ejection fraction was in the range of 55% to 60%. Wall motion was normal; there were no regional wall motion abnormalities. AORTIC VALVE: Trileaflet; normal thickness leaflets. Doppler: Transvalvular velocity was within the normal range. There was no stenosis. No regurgitation. AORTA: Aortic root: The aortic root was normal in size. MITRAL VALVE: Structurally normal valve. Doppler: Transvalvular velocity was within the normal range. There was no evidence for stenosis. Mild regurgitation. LEFT ATRIUM: The atrium was mildly dilated. RIGHT VENTRICLE: The cavity size was normal. Wall thickness was normal. PULMONIC VALVE: Doppler: Transvalvular velocity was within the normal range. There was no evidence for stenosis. No regurgitation. TRICUSPID VALVE: Structurally normal valve. Doppler: Transvalvular velocity was within the normal range. No regurgitation. PULMONARY ARTERY: The main pulmonary artery was normal-sized. Systolic pressure was mildly increased. RIGHT ATRIUM: The atrium was normal in size. PERICARDIUM: There was no pericardial effusion. SYSTEMIC VEINS: Inferior vena cava: The vessel was normal in size. BASIC MEASUREMENTS ADULT Normal Left ventricle LV internal dimension, ED, chordal level, *41.6 mm 43-52 PLAX LV internal dimension, ES, chordal level, 33 mm 23-38 PLAX Fractional shortening, chordal level, PLAX *21 % >29 LV posterior wall thickness, ED 9.39 mm IVS/LVPW ratio, ED 1.19 <1.3 Ventricular septum Septal thickness, ED 11.2 mm Aortic valve Leaflet separation *14 mm 15-26 Right ventricle RV internal dimension, ED, PLAX 29.1 mm 19-38 BASIC MEASUREMENTS ADULT Normal Aortic valve Leaflet separation *14 mm 15-26 Aorta Root diameter, ED 31 mm 20-37 Left atrium Anterior-posterior dimension, ES *55 mm 19-40 LA/aortic root ratio 1.77 DOPPLER MEASUREMENTS ADULT Normal Main pulmonary artery Pressure, S *39 mm Hg =30 Tricuspid valve Regurgitant peak velocity 252 cm/s Peak RV-RA gradient, S 25 mm Hg Maximal regurgitant velocity 252 cm/s Systemic veins Estimated CVP 10 mm Hg Right ventricle RV pressure, S *39 mm Hg <30 LEGEND: Mean values are shown as u=mean value. Asterisk (*) swartz values outside specified normal range. Prepared and signed by Zena Cutler [id number]
--- NOTE | 2016-10-26 19:28 | MG ---
cc: IAM BENSON M.D. Lab No: Date: 10/26/2016 Age: Sex: F Race: Cc. TEST NUMBER [id number] TECHNIQUE 17 channel EEG. DESCRIPTION Background rhythm reveals a symmetrical alpha rhythm, frequency of 8 Hz. There is some focal slowing over the left hemisphere with occasional sharp activity identified. Muscle artifact is seen. Hyperventilation was not done. Photic stimulation results are symmetric driving response. INTERPRETATION Mildly abnormal study. There does appear to be some asymmetric slowing of the left hemisphere. There is some sharp activity not truly epileptiform, would recommend correlation with an imaging study to rule out left hemisphere structural lesion. MD SWAPNA Olguin/JIMMY /7:10 PM /7:22 PM
[2016-10-26] MEDS ORDERED: ATORVASTATIN 40 MG TAB PO SCH (21:00)
--- NOTE | 2016-10-26 21:29 | RADRPT ---
EXAM DATE/TIME: 10/26/2016 20:52 [facility] COMPARISON: CT BRAIN W/O CONTRAST, October 25, 2016, 22:10. MRI BRAIN W/O CONTRAST, June 05, 2011, 16:12. INDICATIONS : Epilepsy. Aphasia. MEDICAL HISTORY : Hypertension. Seizures. Cerebrovascular disease. A-fib. SURGICAL HISTORY : Umbilical hernia repair. Craniotomy. ENCOUNTER: Subsequent ACUITY: 2 day PAIN SCORE: 0/10 LOCATION: cranial TECHNIQUE: Multiplanar, multisequence MRI of the brain was performed without contrast. FINDINGS: CEREBRUM: There is a remote left thalamic and parietal occipital infarction with encephalomalacia and porenceph alexis. The ventricles are normal for age. No evidence of midline shift, mass lesion, hemorrhage or acu te infarction. No extraaxial fluid collections are seen. The pituitary gland and suprasellar cister n are normal in configuration. WHITE MATTER: No significant signal abnormalities are seen in the white matter. POSTERIOR FOSSA: The cerebellum and brainstem are intact. The 4th ventricle is midline. The cerebellopontine angle is unremarkable. The cerebellar tonsils are normal in position. DIFFUSION IMAGING: No focal areas of restricted diffusion are seen. No evidence of acute infarction. EXTRACRANIAL: The visualized portions of the orbits and paranasal sinuses are unremarkable. CONCLUSION: No acute disease. Remote infarcts. Arik Brown MD on October 26, 2016 at 21:20 Board Certified Radiologist. This report was verified electronically.
[2016-10-26] MEDS: lamoTRIgine 25 MG TAB PO SCH (21:55)
[2016-10-27] VITALS (18 sets, daily range): BP systolic 168–183; BP diastolic 71–94; PULSE 66–134; RESP 16–18; TEMP 97.5–98.4; O2SAT 94–99
[2016-10-27 06:25] LABS: INTERNATIONAL NORMALIZED RATIO 1.9 RATIO; PROTHROMBIN TIME - PATIENT 22.1 SEC (9.8-11.6)
[2016-10-27 06:59] LABS: BICARBONATE 26.9 MEQ/L (21.0-32.0); POTASSIUM 3.4 MEQ/L (3.5-5.1)
[2016-10-27] MEDS: lamoTRIgine 25 MG TAB PO SCH (08:58)
[2016-10-27] MEDS: DILTIAZEM-CD 240 MG CAP ER PO SCH (08:58)
[2016-10-27] MEDS: DIGOXIN 0.25 MG TAB PO SCH (08:58)
[2016-10-27] MEDS: POTASSIUM CHLORIDE INJ 30 MEQ in DEXT 5%-NACL 0.9% 1000 ML INJ 1,000 ML IV SCH (08:59)
[2016-10-27] MEDS: levETIRAcetam 250 MG TAB PO SCH (09:26)
[2016-10-27] MEDS ORDERED: POTASSIUM CHLORIDE 10 MEQ CONTROLLED RELEASE TAB PO ONE (13:15)
--- NOTE | 2016-10-27 13:15 | HHI.FF ---
Face to Face Verification Diagnosis: (1) CVA (cerebral vascular accident) Physical Therapy Order: Evaluate and Treat, Improve ambulation, Strength and gait training Occupational Therapy Order: Evaluate and Treat, Improve ADL Speech Therapy Order: To Improve: Cognitive skills Home Health Nursing Order: Medical education Signs/symptoms of disease process Nursing assessment with vital signs I have seen patient Camilla Jimenez on 10/27/16. My clinical findings support the need for the requested home health care services because: Deconditioned w/ increased weakness Need for psychosocial assistance High risk of falls I certify that my clinical findings support that this patient is homebound because: Unsteady gait/balance Traci Amador MD Oct 27, 2016 13:15
--- NOTE | 2016-10-27 14:26 | HHI.PR ---
Subjective Remarks awake and alert, no headaches or dizziness, speech clear, no nausea or vomiting Objective Vitals Vital Signs Date Time Temp Pulse Resp B/P Pulse Ox O2 Delivery O2 Flow Rate FiO2 10/27/16 13:02 119 10/27/16 12:00 100 10/27/16 11:00 97 10/27/16 11:00 97.9 100 18 183/90 96 10/27/16 10:00 98 10/27/16 09:30 94 21 10/27/16 09:00 134 10/27/16 08:00 88 10/27/16 07:00 98.3 83 18 180/94 96 10/27/16 07:00 93 10/27/16 06:00 84 10/27/16 05:00 70 10/27/16 04:00 80 10/27/16 03:00 82 10/27/16 03:00 98.4 82 16 168/82 99 10/27/16 02:00 68 10/27/16 01:00 66 10/27/16 00:00 76 10/26/16 23:00 78 10/26/16 23:00 98.4 78 16 164/88 98 10/26/16 22:00 84 10/26/16 21:29 97 Nasal Cannula 2.00 10/26/16 20:00 97.9 99 16 177/92 98 10/26/16 20:00 96 10/26/16 19:00 94 10/26/16 16:54 98.3 85 18 137/110 97 10/26/16 16:14 83 16 155/64 97 Nasal Cannula 2 10/26/16 15:45 78 20 159/74 96 Nasal Cannula 2 10/26/16 14:45 78 16 171/79 96 Nasal Cannula 2 I/O 10/26/16 10/26/16 10/26/16 10/27/16 10/27/16 10/27/16 07:00 15:00 23:00 07:00 15:00 23:00 Intake Total 1302 ml Output Total 1075 ml 1500 ml Balance -1075 ml -198 ml Intake Oral 720 ml IV Total 582 ml Output Urine Total 1075 ml 1500 ml # Voids 1 # Bowel Movements 0 Result Diagram: 10/26/16 0408 10/27/16 0450 Imaging Last Impressions Brain MRI 10/26/16 0000 Signed Impressions: Service Date/Time: Wednesday, October 26, 2016 20:52 - CONCLUSION: No acute disease. Remote infarcts. Arik Brown MD Neck CTA 10/25/162203 Signed Impressions: Service Date/Time: Tuesday, October 25, 2016 22:10 - CONCLUSION: No evidence for hemodynamically significant stenosis. Krzysztof Robert MD Head CTA 10/25/162203 Signed Impressions: Service Date/Time: Tuesday, October 25, 2016 22:10 - CONCLUSION: Normal examination for a patient of this age. Krzysztof Robert MD Head CT 10/25/16 0000 Signed Impressions: Service Date/Time: Tuesday, October 25, 2016 22:10 - CONCLUSION: No acute disease. Krzysztof Robert MD Objective Remarks awake and alert, oriented x 3, speech clear, NAD anicteric lungs clear irregular rhythm abdmen soft, nontender extremities no edema neuro exam- non focal A/P Problem List: (1) Seizure ICD Code: R56.9 Status: Acute (2) CVA (cerebral vascular accident) ICD Code: I63.9 Status: Acute (3) A-fib ICD Code: I48.91 Status: Chronic Assessment and Plan This is an 85 year old female patient with a past medical history which includes seizure disorder on Keppra, hemorrhagic stroke, atrial fibrillation on Coumadin INR 2.1, hypertension and hyperlipidemia. Patient is currently unable to provide meaningful information. Information gathered from patient, prior charting and two son's at bedside. Patient was at home with daughter when patient was noted to have a difficult time talking (word salad) along with right upper extremity rigidity and right lower extremity twitching. Breakthrough Seizure CVA unlikely with therapeutic INR CT head reveals no acute findings CTA head reports normal exam for patietn of this age CTA neck no evidence for hemodynamically significant stenosis Echocardiogram- unremarkable EEG as resulted Ativan as needed for seizure On Lamictal, Keppra OP ff up with Dr. Yan advise no driving- states she does not drive Atrial fibrillation rate currently controlled-rate- occasional low 100s On Coumadin with therapeutic INR 2.1 Continue digoxin Continue Coumadin. inr 1.9 today- give extra 0.5 mg today only INR tomorrow as OP on CArdizem, Restart home Lopressor Hypertension - continue CCB. restart BB, LISBET Hypokalemia- give po K. recheck as OP Hyperlipidemia continue home medication DVT prophylaxis patient is on Coumadin Traci Amador MD Oct 27, 2016 14:26
[2016-10-27] MEDS ORDERED: METOPROLOL TARTRATE 50 MG TAB PO SCH (15:00)
[2016-10-27] MEDS ORDERED: LISINOPRIL 10 MG TAB PO SCH (15:00)
[2016-10-27] MEDS ORDERED: WARFARIN SOD 1 MG TAB PO ONE ×2 (15:00→16:00)
[2016-10-27] MEDS: WARFARIN SOD 1 MG TAB PO SCH (15:33)
== END 2016-10-27 17:18 | disposition home or self-care (01) | DRG 100 ==
LOC: NEPC 21:59 → NEDA 23:39 → NEDH 10-26 03:48 → HCIS 10-26 16:52
PROVIDERS: ADMIT Internal Medicine; ATTEND Internal Medicine
DX: G40.909 Epilepsy, unspecified, not intractable, without status epilepticus (principal); I63.9 Cerebral infarction, unspecified; I48.91 Unspecified atrial fibrillation; I10 Essential (primary) hypertension; E78.5 Hyperlipidemia, unspecified; D69.9 Hemorrhagic condition, unspecified; R47.01 Aphasia; E87.6 Hypokalemia; Z79.01 Long term (current) use of anticoagulants; I25.10 Atherosclerotic heart disease of native coronary artery without angina pectoris; I25.2 Old myocardial infarction; I44.7 Left bundle-branch block, unspecified; K21.9 Gastro-esophageal reflux disease without esophagitis; Z86.73 Personal history of transient ischemic attack (TIA), and cerebral infarction without residual deficits; Z87.891 Personal history of nicotine dependence
CPT/HCPCS: 70450; 70496; 70498; 70551; 80048; 80061; 80162; 80177; 80307; 81001; 82435; 82550; 82565; 82947; 84132; 84295; 84484; 84520; 84702; 85025; 85384; 85610; 85730; 86850; 86900; 86901; 93005; 93306; 95819; 96361; 96374; J2060; J3480; J7030; J7042; Q9967

== ENCOUNTER 2017-04-05 11:30 | Emergency (ER) | payer MEDICARE, OTHER ==
[~2017-04-05 11:30] MED LIST changes: +ACYC400T PO; -ALPR.25 PO; -FURO1TAB60 PO; -PERC5TAB12 PO
[2017-04-05 11:47] VITALS: BP 126/61; PULSE 62; RESP 20; TEMP 97.4; O2SAT 95
--- NOTE | 2017-04-05 11:53 | PD ---
HPI Chief Complaint: Musculoskeletal Complaint Time Seen by Provider: 11:52 Travel History International Travel<30 days: No Contact w/Intl Traveler<30days: No Traveled to known affect area: No History of Present Illness HPI 86-year-old female complains of left wrist pain times one day. Says she has difficulty moving the wrist but does not feel crepitus or popping, describes as moderate pain. Tylenol did not relieve the pain. She is right-handed. She takes Coumadin daily and goes to a Coumadin clinic for regular checks. She has a history of seizure disorder, atrial fibrillation and hemorrhagic CVA. Denies subjective fever, illness, trauma, falls, recent infections, chest pain, shortness of breath, abdominal pain, flank pain, any other joint pain. PFSH Past Medical History Hx Anticoagulant Therapy: Yes (coumadin) Arthritis: No Asthma: No Atrial Fibrillation: Yes Autoimmune Disease: No Blood Disorders: No Heart Rhythm Problems: Yes Cancer: No Cardiac Catheterization: Yes Cardiovascular Problems: Yes High Cholesterol: Yes Chemotherapy: No Chest Pain: Yes Congestive Heart Failure: No COPD: No Cerebrovascular Accident: Yes Coronary Artery Disease: Yes Diabetes: Yes Patient Takes Glucophage: No Diminished Hearing: No Endocrine: No Gastrointestinal Disorders: No GERD: Yes Genitourinary: No Headaches: Yes (15 YEARS AGO) Hepatitis: No Hiatal Hernia: No Hypertension: Yes Immune Disorder: No Implanted Vascular Access Dvce: No Kidney Stones: No Musculoskeletal: No Neurologic: No Psychiatric: No Reproductive: No Respiratory: No Immunizations Current: No Migraines: No Myocardial Infarction: Yes Radiation Therapy: No Renal Failure: No Seizures: Yes Sleep Apnea: No Thyroid Disease: No Menopausal: Yes : 2 Para: 1 : 1 Tubal Ligation: No Past Surgical History Abdominal Surgery: Yes AICD: No Cholecystectomy: Yes Genitourinary Surgery: No Hysterectomy: No Insulin Pump: No Joint Replacement: No Neurologic Surgery: Yes (CEREBRAL HEMORRHAGE 20 YEARS AGO) Pacemaker: No Other Surgery: Yes (UMBILICAL HERNIA REPAIR) Social History Alcohol Use: No Tobacco Use: No Substance Use: No Allergies-Medications (Allergen,Severity, Reaction): Coded Allergies: Sulfa (Sulfonamide Antibiotics) (Unverified Allergy, Severe, ITCHING, 04/05) aspirin (Unverified Allergy, Severe, BLEEDING, 04/05/17) phenytoin (Unverified Allergy, Severe, Hallucinations, 04/05/17) Reported Meds & Prescriptions Reported Meds & Active Scripts Active Reported Acyclovir 400 Mg Tab 400 Mg PO TID Potassium Chloride Microencaps 20 Meq Tab 20 Meq PO DAILY Coumadin (Warfarin) 1 Mg Tab 0.5 Mg PO DAILY Metoprolol Tartrate 50 Mg Tab 50 Mg PO BID Lisinopril 10 Mg Tab 10 Mg PO DAILY Keppra (Levetiracetam) 750 Mg Tab 750 Mg PO BID Digoxin 0.25 Mg Tab 0.25 Mg PO DAILY Atorvastatin (Atorvastatin Calcium) 40 Mg Tab 40 Mg PO HS Review of Systems Except as stated in HPI: all other systems reviewed are Neg Physical Exam Narrative GENERAL: Well-developed well-nourished 86-year-old female here with her daughter Alexa. SKIN: Focused skin assessment warm/dry. Right wrist: Edema surrounding wrist approximately 3 cm proximal and 1 cm distal to joint. HEAD: Atraumatic. Normocephalic. EYES: Pupils equal and round. No scleral icterus. No injection or drainage. ENT: No nasal bleeding or discharge. Mucous membranes pink and moist. NECK: Trachea midline. No JVD. CARDIOVASCULAR: Regular rate and rhythm. No murmur appreciated. RESPIRATORY: No accessory muscle use. Clear to auscultation. Breath sounds equal bilaterally. GASTROINTESTINAL: Abdomen soft, non-tender, nondistended. Hepatic and splenic margins not palpable. MUSCULOSKELETAL: No obvious deformities. No clubbing. No cyanosis. No edema. Patient does have mild tenderness to palpation. She has limited range of motion active and passive due to pain. No crepitus. No ecchymosis. Pulses present. NEUROLOGICAL: Awake and alert. Motor grossly within normal limits. Normal speech. Normal sensation of hands. PSYCHIATRIC: Appropriate mood and affect; insight and judgment normal. Data Data Last Documented VS Vital Signs Date Time Temp Pulse Resp B/P (MAP) Pulse Ox O2 Delivery O2 Flow Rate FiO2 04/05/17 11:47 97.4 62 20 126/61 (82) 95 Orders Orders Wrist, Complete ([id number]) (04/05/17 ) Ct Wrist W/O Contrast (04/05/17 12:50) Support Splint (04/05/17 14:33) MDM Medical Decision Making Medical Screen Exam Complete: Yes Emergency Medical Condition: Yes Differential Diagnosis Left Wrist sprain versus tendinitis versus septic arthritis versus pseudogout versus fracture Narrative Course 86-year-old female complains of wrist pain times one day. She is right-handed. She takes Coumadin daily and goes to a Coumadin clinic for regular checks. She has a history of seizure disorder, atrial fibrillation and hemorrhagic CVA. Denies subjective fever, illness, trauma, recent infections, chest pain, shortness of breath, abdominal pain, flank pain, any other joint pain. 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 Patient does not appear in any distress during hospital visit. Because of her age and coumadin use,I am reluctant to suggest NSAIDS such as colchicine, indomethacin, or motrin. Will give medrol pack to reduce inflammatory process and follow up with her PCP. May use RICE as well to reduce pain. Given wrist splint for comfort measures and advised to use only for a couple of days as needed for pain. Diagnosis Primary Impression: Pseudogout Referrals: Orthopedist Primary Care Physician Additional Instructions: You're being given steroids for your condition. He should follow up with her primary care physician within 2 days for further treatment and evaluation. There were no fractures seen on the imaging studies. For relief of your pain, continue to take Tylenol per package instructions. You may rest, ice, use compression, and elevate elevate to reduce her symptoms. Scripts Methylprednisolone Dosepak (Medrol Dosepak) 4 Mg Dspk 4 MG PO DIRECTED, #1 DSPK 0 Refills Per Pharmacist direction Prov: Toya Hinojosa 04/05/17 Disposition: 01 DISCHARGE HOME Condition: Stable Toya Hinojosa Apr 05, 2017 11:53
--- NOTE | 2017-04-05 12:36 | RADRPT ---
EXAM DATE/TIME: 04/05/2017 12:21 [facility] COMPARISON: No previous studies available for comparison. INDICATIONS : Left wrist pain and swelling for several days with no known injury. MEDICAL HISTORY : None. SURGICAL HISTORY : None. ENCOUNTER: Initial ACUITY: 3 days PAIN SCORE: 5/10 LOCATION: Left wrist. FINDINGS: Three view examination of the left wrist demonstrates soft tissue swelling with questionable nondispl aced fracture ulnar styloid. Scattered degenerative changes. The carpal bones are in normal alignment . CONCLUSION: 1. Soft tissue swelling with questionable nondisplaced fracture ulnar styloid. Arik Brown MD on April 05, 2017 at 12:34 Board Certified Radiologist. This report was verified electronically.
--- NOTE | 2017-04-05 14:08 | RADRPT ---
EXAM DATE/TIME: 04/05/2017 13:21 [facility] COMPARISON: WRIST LEFT COMPLETE ([id number]), April 05, 2017, 12:21. INDICATIONS : Left wrist pain and swelling. No known injury. RADIATION DOSE: 14.80 CTDIvol (mGy) MEDICAL HISTORY : None SURGICAL HISTORY : None. ENCOUNTER: Initial ACUITY: 1 day PAIN SCALE: 5/10 LOCATION: Left wrist TECHNIQUE: Volumetric scanning of the wrist was performed. Using automated exposure control and adjustment of the mA and/or kV according to patient size, radiation dose was kept as low as reasonabl y achievable to obtain optimal diagnostic quality images. DICOM format image data is available elec tronically for review and comparison. FINDINGS: BONES: Ulnar styloid appears intact. No evidence of fracture. Alignment is within normal limits. JOINTS: There is a small joint effusion involving the radiocarpal and distal radioulnar joints. I ncreased density noted in the radiocarpal joint and near the triangular fibrocartilage consistent wit h chondrocalcinosis. No focal bone erosion. Intrinsic ligaments and triangular fibrocartilage cannot be reliably evaluated on CT without intra-articular contrast. There is joint space narrowing involvi ng the carpal metacarpal joints most notably of the first carpal metacarpal joint. SOFT TISSUES: Muscles, tendons, and neurovascular structures are grossly unremarkable. No eviden ce of mass, organized fluid collection or foreign body. CONCLUSION: 1. No acute fracture or dislocation. 2. Osteoarthritis most notably of the first carpometacarpal joint. 3. 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 Isma Chiang MD on April 05, 2017 at 13:53 Board Certified Radiologist. This report was verified electronically.
[2017-04-05] MEDS ORDERED: MEDR4PAK PO (14:49)
== END 2017-04-05 14:55 | disposition home or self-care (01) ==
LOC: PHEFT 11:30
DX: M11.242 Other chondrocalcinosis, left hand (principal)
CPT/HCPCS: 73110; 73200; 99284; L3908

== ENCOUNTER 2017-10-08 16:20 | Emergency (ER) | payer OTHER ==
[~2017-10-08] VITALS: Ht 165.1 cm; Wt 69.0 kg
[~2017-10-08 16:20] MED LIST changes: +MEDR4PAK PO
[2017-10-08 16:35] VITALS: BP 133/60; PULSE 55; RESP 16; TEMP 97.6; O2SAT 94
[2017-10-08] MEDS ORDERED: FURO1TAB62 PO (17:41)
--- NOTE | 2017-10-08 18:12 | PD ---
HPI Chief Complaint: ENT Complaint Time Seen by Provider: 18:06 Travel History International Travel<30 days: No Contact w/Intl Traveler<30days: No Traveled to known affect area: No History of Present Illness HPI 86-year-old female presents to the emergency department for evaluation of cerumen impaction to the right ear. Patient states she went for a hearing test yesterday and was instructed that she had a cerumen impaction to the right ear. She is here to get it removed. She states she has been ongoing for several months. Her only symptom is difficulty hearing out of the right ear. Patient denies any other symptoms or complaints at this time. Mild severity. PFSH Past Medical History Hx Anticoagulant Therapy: Yes (coumadin) Arthritis: No Asthma: No Atrial Fibrillation: Yes Autoimmune Disease: No Blood Disorders: No Heart Rhythm Problems: Yes Cancer: No Cardiac Catheterization: Yes Cardiovascular Problems: Yes High Cholesterol: Yes Chemotherapy: No Chest Pain: Yes Congestive Heart Failure: No COPD: No Cerebrovascular Accident: Yes Coronary Artery Disease: Yes Diabetes: Yes Patient Takes Glucophage: Yes Diminished Hearing: Yes (R ear impacted) Endocrine: No Gastrointestinal Disorders: No GERD: Yes Genitourinary: No Headaches: Yes (15 YEARS AGO) Hepatitis: No Hiatal Hernia: No Hypertension: Yes Immune Disorder: No Implanted Vascular Access Dvce: No Kidney Stones: No Musculoskeletal: No Neurologic: No Psychiatric: No Reproductive: No Respiratory: No Immunizations Current: No Migraines: No Myocardial Infarction: Yes Radiation Therapy: No Renal Failure: No Seizures: Yes Sleep Apnea: No Thyroid Disease: No Influenza Vaccination: Yes ?: Not Menopausal: Yes : 2 Para: 1 : 1 Tubal Ligation: No Past Surgical History Abdominal Surgery: Yes AICD: No Cholecystectomy: Yes Coronary Stent: Yes Genitourinary Surgery: No Hysterectomy: No Insulin Pump: No Joint Replacement: No Neurologic Surgery: Yes (CEREBRAL HEMORRHAGE 20 YEARS AGO) Pacemaker: No Other Surgery: Yes (UMBILICAL HERNIA REPAIR) Social History Alcohol Use: No Tobacco Use: No Substance Use: No Allergies-Medications (Allergen,Severity, Reaction): Coded Allergies: Sulfa (Sulfonamide Antibiotics) (Unverified Allergy, Severe, ITCHING, ) aspirin (Unverified Allergy, Severe, BLEEDING, 10/08/17) phenytoin (Unverified Allergy, Severe, Hallucinations, 10/08/17) Reported Meds & Prescriptions Reported Meds & Active Scripts Active Reported Lasix (Furosemide) 20 Mg Tab Unknown Dose PO BID Potassium Chloride Microencaps 20 Meq Tab 20 Meq PO DAILY Coumadin (Warfarin) 1 Mg Tab 0.5 Mg PO DAILY Metoprolol Tartrate 50 Mg Tab 50 Mg PO BID Lisinopril 10 Mg Tab 10 Mg PO DAILY Keppra (Levetiracetam) 750 Mg Tab 750 Mg PO BID Digoxin 0.25 Mg Tab 0.25 Mg PO DAILY Atorvastatin (Atorvastatin Calcium) 40 Mg Tab 40 Mg PO HS Review of Systems Except as stated in HPI: all other systems reviewed are Neg Physical Exam Narrative GENERAL: Well-nourished, well-developed elderly female patient, afebrile. SKIN: Focused skin assessment warm/dry. HEAD: Normocephalic. Atraumatic. ENT: Mucosa pink and moist. No erythema or exudates. No uvular edema. No uvular , palatal, or tonsillar deviation. Airway patent. Nasal turbinates appear normal without nasal blood, purulent drainage or septal hematoma. Left tympanic membrane is clear without erythema or perforation. Right ear canal blocked with cerumen. EYES: No scleral icterus. No injection or drainage. NECK: Supple, trachea midline. No JVD or lymphadenopathy. CARDIOVASCULAR: Regular rate and rhythm without murmurs, gallops, or rubs. RESPIRATORY: Breath sounds equal bilaterally. No accessory muscle use. Lung sounds are clear to auscultation peer MUSCULOSKELETAL: No cyanosis, or edema. Data Data Last Documented VS Vital Signs Date Time Temp Pulse Resp B/P (MAP) Pulse Ox O2 Delivery O2 Flow Rate FiO2 10/08/17 16:35 97.6 55 16 133/60 (84) 94 Orders Orders Ear Irrigation (10/08/17 18:10) [facility] Medical Decision Making Medical Screen Exam Complete: Yes Emergency Medical Condition: Yes Medical Record Reviewed: Yes Differential Diagnosis Cerumen impaction versus otitis media versus otitis externa Narrative Course 86-year-old female presents to the emergency department after she was told she has cerumen impaction to the right ear after hearing test yesterday. Ear will be irrigated by the nurse. Upon reexamination, cerumen impaction is resolved. The tympanic membrane is visualized without erythema or perforation. The patient was discharged in stable condition with instructions, including return instructions and follow up instructions. Diagnosis Primary Impression: Cerumen impaction Qualified Codes: H61.21 - Impacted cerumen, right ear Referrals: Primary Care Physician as needed Patient Instructions: Cerumen Impaction (ED), General Instructions Additional Instructions: Follow-up with a primary care physician. Return to the emergency department for any acute worsening of symptoms. Med/Other Pt SpecificInfo: No Change to Meds Disposition: 01 DISCHARGE HOME Condition: Stable Itzel Hernandez Oct 08, 2017 18:12
== END 2017-10-08 18:49 | disposition home or self-care (01) ==
LOC: PHEFT 16:20
DX: H61.21 Impacted cerumen, right ear (principal); I48.91 Unspecified atrial fibrillation; E78.00 Pure hypercholesterolemia, unspecified; I25.10 Atherosclerotic heart disease of native coronary artery without angina pectoris; E11.9 Type 2 diabetes mellitus without complications; I10 Essential (primary) hypertension; I25.2 Old myocardial infarction; Z86.73 Personal history of transient ischemic attack (TIA), and cerebral infarction without residual deficits; Z79.01 Long term (current) use of anticoagulants; Z95.5 Presence of coronary angioplasty implant and graft; Z79.84 Long term (current) use of oral hypoglycemic drugs
CPT/HCPCS: 99283